=== PATIENT | female | born 1960 | race Caucasian/White ===

== ENCOUNTER 2024-06-19 07:56 | Observation (INO) | payer MEDICARE, MEDICAID, SELFPAY ==
[2024-06-19] VITALS (15 sets, daily range): BP systolic 126–151; BP diastolic 75–87; PULSE 75–105; RESP 18–24; TEMP 36.6–36.8; O2SAT 91–99; BMI 29.9
--- NOTE | 2024-06-19 08:32 | XR_ITS ---
Examination: PA lateral chest 2 views TECHNIQUE: Upright PA lateral chest 2 views Exam date and time: June 19, 2024 0849 hours INDICATIONS: Shortness of breath today. FINDINGS: Scarring versus pneumonia in the lingular segment Suspicious for mild pneumonia at the right lung base Normal heart size Reverse right shoulder arthroplasty IMPRESSION: Scarring versus pneumonia in the lingular segment, clinical correlation advised Suspicious for mild pneumonia right lung
--- NOTE | 2024-06-19 08:42 | PC.NURSE ---
Pt. here from home to room 2, pt. sitting up on the side of the bed in room 2, pt. states she has been SOB X 3 days, pt. states she was seen here last night and got a breathing treatment, pt. states she went home and continuously coughed, pt. states she knows she has pneumonia she can feel it. Pt. states she's coughing up thick green sputum. Pt. is SOB and labored breathing, pt. gets 2 or 3 words out at a time before needing a breath.
--- NOTE | 2024-06-19 09:17 | EKG_ITS ---
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
--- NOTE | 2024-06-19 09:20 | EDNOTE_ITS ---
ED SOB =RME/HPI General Chief Complaint: Shortness of Breath/Dyspnea Stated Complaint: SOB COUGH Time Seen by Provider: 06/19/24 07:59 Arrival date/time: 06/19/24 07:56 RME / HPI RME / HPI Narrative: 64 year old female with history of COPD presents to the ED for complaint of shortness of breath and cough beginning 4 days ago. Described feeling she is not getting enough air and breathing feels labored. Not improved with use of her inhalers at home. Reportedly was evaluated here last night for similar shortness of breath and received a breathing treatment. States she was discharged home and during the course of the night symptoms did not improve, prompting ED visit. Denies fevers, chills, chest pain, abdominal pain, n/v/d, urinary symptoms, or leg swelling. Related Data Previous Rx's ?Medication ?Instructions ?Recorded prednisone 20 mg tablet See Taper PO BID 3 days #6 tabs 06/18/24 Allergies Allergy/AdvReac Type Severity Reaction Status Date / Time No Known Allergies Allergy Verified 06/19/24 07:58 Review of Systems Review of Systems Narrative Review of Systems: GEN: No fever, no chills, no weight loss EYES: No discharge, no visual changes, no pain HEENT: No ear pain, no congestion, no sore throat PULM: +shortness of breath, +cough CV: No chest pain, no palpitations GI: No nausea, no vomiting, no diarrhea, no pain, no constipation : No frequency, no urgency and no dysuria MUSC/SKEL No joint pain, no back pain SKIN: No rash PSYCH: No hallucinations, no depression HEME/LYMPH: No easy bleeding or bruising tendencies NEURO: No weakness, no headache Past Medical History Social History SMOKING STATUS: Current every day smoker ED Exam Narrative Physical exam: GENERAL APPEARANCE: Well hydrated, well nourished, in no acute distress. VITALS: All vitals were reviewed and the pulse ox is 97% on 4L Oxy Mask. HEENT: Normocephalic, atramatic, EOMI, EACs are patent. There is no bulge or retraction. Throat without erythema or exudate. Moist oromucosa. No jaundice NECK: Supple, no JVD or bruits. CARDIOVASCULAR: Heart regular without S3-S4 or murmur. No rubs or gallops. LUNGS/CHEST: Rhonchi in the bases, mild wheezing. No rales. ABDOMEN: Soft, nontender, with normal bowel sounds. No pulsatile masses. No rebound, rigidity, or guarding. No incarcerated hernia. Normal inspection and palpation. EXTREMITIES: Normal inspection and palpation. No edema, clubbing, or cyanosis. Intact CSM SKIN: Warm and dry without rashes. Normal inspection. MUSCULOSKELETAL: Normal inspection. No gross deformity, full ROM all extremities NEURO: Alert and oriented x3. Cranial nerves II through XII grossly intact. There are no other motor or sensory deficits noted. PSYCHIATRIC: Normal mood and affect. No psychosis Course Course Course Narrative: chest xray ordered to help determine etiology of shortness of breath. Quality Measures none Orders Category Date Time Status Bedside COVID-19 Antigen Test NOW Care 06/19/24 08:32 Active Bedside Influenza A&B Antigen Test NOW Care 06/19/24 08:32 Completed EKG (ED ONLY) *Do not use* NOW Care 06/19/24 09:17 Completed Saline [Insert IV] NOW Care 06/19/24 09:17 Active EKG (ED Only) Stat Exams 06/19/24 09:17 Draft XR chest 2V Stat Exams 06/19/24 08:32 Completed BNP [B-Type Natriuretic Peptide] Stat Lab 06/19/24 09:25 Completed Blood Culture (Lab) Stat Lab 06/19/24 09:45 Received CBC Stat Lab 06/19/24 09:25 Completed CMP [Comprehensive Metabolic Panel] Stat Lab 06/19/24 09:25 Completed Troponin I Stat Lab 06/19/24 09:25 Completed ALBUTEROL RT 0.5ml [Proventil Rt 0.5ml] Med 06/19/24 09:17 Discontinued 5 mg HHN X1 ONE ALBUTEROL RT 0.5ml [Proventil Rt 0.5ml] Med 06/19/24 12:28 Discontinued 5 mg HHN X1 ONE Acetaminophen Tab [Tylenol Tab] Med 06/19/24 12:27 Discontinued 650 mg PO X1 ONE MethylPREDNISolone.* [SoluMEDROL Inj] Med 06/19/24 09:17 Discontinued 125 mg IVP X1 ONE Sodium Chloride Rt Angélica 0.9% [NS Rt Angélica 0.9%] Med 06/19/24 09:17 Active 3 ml INH PRN PRN Sodium Chloride Rt Angélica 0.9% [NS Rt Angélica 0.9%] Med 06/19/24 12:28 Active 3 ml INH PRN PRN cefTRIAXone/D5w 1gm IV premix [Rocephin/D5w 1gm IV Med 06/19/24 09:26 Discontinued premix] 50 ml IV X1 Vital Signs Vital signs: Vital Signs Temperature 98.2 F 06/19/24 08:14 Pulse Rate 96 06/19/24 08:14 Respiratory Rate 22 H 06/19/24 08:14 Blood Pressure 126/85 H 06/19/24 08:14 Pulse Oximetry (%) 91 L 06/19/24 08:14 Oxygen Delivery Method Room Air 06/19/24 08:14 Shortness of Breath / Dyspnea MDM Narrative MDM Narrative:: IBhavani, am scribing for and in the presence of Dr. Kim. CBC unremarkable. CMP negative. BNP negative. Troponin negative. COVID-19 negative. Influenza negative. Troponin is negative. 2 view chest x-ray reviewed and interpreted by me: Evidence of right lower lobe infiltrate. Heart is normal. Mediastinum normal. Normal bones. No CHF. No pneumothorax. Twelve-lead EKG at 9:42 AM interpreted by me: Sinus rhythm. Heart rate of 75. Normal axis. No ST elevation or depression. No PVC. No STEMI. Regular rate and rhythm. According to nursing staff, after going to the restroom, the patient coming back and short of breath and O2 saturation dropped down to 88% on room air. She was put back in bed and O2 was given via the simple mask with 5 L it went up to about 95%. Alert awake oriented x 4 GCS of 15. And talkative. She is still wheezing and I am giving her another 5 mg of albuterol continuous. She also got IV antibiotics for pneumonia and IV Solu-Medrol for COPD. She does not have an oxygen or nebulizer machine at home. She only has the inhaler. 12:30 PM, I spoke to and discussed with Dr. Sanders, hospitalist on-call. He agreed to admit the patient for further evaluation and treatment. Thank you very much. Critical care time is approximately 35 minutes excluding any procedure. The high probability of sudden, clinically significant deterioration in the patient?s condition required the highest level of my preparedness to intervene urgently. The services I provided to this patient were to treat and/or prevent clinically significant deterioration. Services included the following: chart data review, reviewing nursing notes and/or old charts, documentation time, microsoft dynamics consultant collaboration regarding findings and treatment options, medication orders and management, direct patient care, vital sign assessments and ordering, interpreting and reviewing diagnostic studies and lab tests. Aggregate critical care time includes only time during which I was engaged in work directly related to the patient?s care, as described above, whether at bedside or elsewhere in the Emergency Department. It did not include time spent performing other reported procedures or the services of residents, students, nurses or physician assistants. Patient data External records reviewed:: [facility] previous records (I reviewed ED visit from last night 06/18/2024) Clinical information provided by:: patient Social determinants that could affect healthcare access:: none Patient has the following chronic illnesses:: COPD How is presenting disease/condition affected by chronic disease/condition?: exacerbated by Evaluation data The following diagnostics were reviewed and interpreted by me:: lab results and radiology exam(s) Lab and/or radiology exams considered but not ordered:: None Interpretation Summary: Ordering Physician: Akash JAMES)Misael NP Date of Service: 06/19/24 Procedure(s): XR chest 2V Accession Number(s): [id number] cc: Akash JAMES),Misael GONZALES; Angus Silva MD~ Examination: PA lateral chest 2 views TECHNIQUE: Upright PA lateral chest 2 views Exam date and time: June 19, 2024 0849 hours INDICATIONS: Shortness of breath today. FINDINGS: Scarring versus pneumonia in the lingular segment Suspicious for mild pneumonia at the right lung base Normal heart size Reverse right shoulder arthroplasty IMPRESSION: Scarring versus pneumonia in the lingular segment, clinical correlation advised Suspicious for mild pneumonia right lung Dictated By: Angus Silva MD Signed By: <Electronically signed by Angus Silva MD in OV> 06/19/24 0909 Medications / Prescriptions Medications or Prescriptions considered but not ordered:: None Medication administrations:: Medication Administration History Sodium Chloride (Sodium Chloride Rt Angélica 0.9% 3 Ml Nebu) 3 ml INH PRN PRN PRN Reason: SOLN Stop: 07/19/24 09:16 Last Admin: 06/19/24 09:46 Dose: 3 ml Documented By: Sodium Chloride (Sodium Chloride Rt Angélica 0.9% 3 Ml Nebu) 3 ml INH PRN PRN PRN Reason: SOLN Stop: 07/19/24 12:27 Discontinued Medications Acetaminophen (Acetaminophen 325 Mg Tablet) 650 mg PO X1 ONE Stop: 06/19/24 12:28 Last Admin: 06/19/24 12:33 Dose: 650 mg Documented By: ED Albuterol (Albuterol Rt 2.5 Mg/0.5 Ml Nebu) 5 mg HHN X1 ONE Stop: 06/19/24 09:18 Last Admin: 06/19/24 09:46 Dose: 5 mg Documented By: MR Albuterol (Albuterol Rt 2.5 Mg/0.5 Ml Nebu) 5 mg HHN X1 ONE Stop: 06/19/24 12:29 Ceftriaxone Sodium/Dextrose (Rocephin/D5w 1gm Iv Premix) 50 mls @ 100 mls/hr IV X1 ONE Stop: 06/19/24 09:55 Last Infusion: 06/19/24 10:50 Dose: Infused Documented By: Admin: 06/19/24 10:20 Dose: 100 mls/hr Documented By: ED Methylprednisolone Sodium Succinate (Methylprednisolone Sod Succ 62.5 Mg/Ml 2ml Vial) 125 mg IVP X1 ONE Stop: 06/19/24 09:18 Last Admin: 06/19/24 10:12 Dose: 125 mg Documented By: ED See above Consultations Consultation(s) initiated? (list below): Yes Consultation #1 (Physician, Specialty, Details): I spoke with hospitalist Dr. Sanders regarding admission. Discussed patients PMHx, HPI, ED course, exam findings, labs, and radiology results. Time: 12:30 Diagnosis Shortness of Breath Differential Diagnosis: acute exacerbation of chronic obstructive airways disease, congestive heart failure and community acquired pneumonia Most likely diagnosis given after review of the tests above:: COPD. Pneumonia. Hypoxia Admission Indicated Admission indicated?: indicated Admission Request Was there a request for admission?: Yes Admission Attestation Admission request attestation: Discussed case with [] from Hospitalist service regarding admission. Discussed patients ED course, exam findings, labs, and radiology results. The Hospitalist [agrees,declines] to accept the patient for admission. Disposition Plan Disposition Plan: Admit Discharge Plan Plan Patient Disposition: Admit Acute Care w/in Hospital Disposition Comment: Stable for admit Prescriptions/Referrals Prescriptions/Med Rec: No Action prednisone 20 mg tablet See Taper PO BID 3 Days Qty: 6 0RF Taper: Prednisone Taper 20 mg DAILY for 2 Days and 0 Hour 10 mg DAILY for 2 Days and 0 Hour 5 mg DAILY for 7 Days and 0 Hour Referrals: Harshad Frances MD [Primary Care Provider] - In 1 week Problem List Clinical Impression: Acute exacerbation of chronic obstructive airways disease, Community acquired pneumonia, Hypoxia Patient/Caregiver Discharge Instructions Print Language: Omani Stand Alone Forms: Maryan Award Info., Patient Portal Info Letter
[2024-06-19 09:32] LABS: Basophils % (Auto) 0 % (0-2.5); Eosinophils % (Auto) 0 % (0-10); Hematocrit 45.4 % (36.0-46.0); Hemoglobin 15.2 g/dL (12.0-16.0); Immature Granulocytes % (Auto) 0 % (0-0); Immature Granulocytes Auto 0.04 Thou/mm3 (0.00-0.00); Lymphocytes # (Auto) 1.1 Thou/mm3 (1.0-4.8); Lymphocytes % (Auto) 10 % (10-50); Mean Corpuscular HGB Conc 33.5 g/dl (31.0-37.0); Mean Corpuscular Hemoglobin 31.4 pg (25.0-35.0); Mean Corpuscular Volume 94 fL (80-100); Monocytes # (Auto) 0.7 Thou/mm3 (0.0-0.8); Monocytes % (Auto) 6 % (0-12); Neutrophils # (Auto) 9.8 Thou/mm3 (1.8-7.7); Neutrophils % (Auto) 84 % (37-80); Nucleated Red Blood Cell % 0 /100 WBC (0); Platelet Count 170 Thou/mm3 (140-440); RDW Standard Deviation 48.6 fL (36.4-46.3); Red Blood Count 4.84 Miln/mm3 (4.00-5.20); White Blood Count 11.7 Thou/mm3 (3.6-11.0)
[2024-06-19] MEDS: SODIUM CHLORIDE RT SOL 0.9% 3 ML NEBU INH ×2 (09:46→12:42)
[2024-06-19] MEDS: ALBUTEROL RT 2.5 MG/0.5 ML NEBU 5 MG HHN ×2 (09:46→12:41)
[2024-06-19 09:48] LABS: B-Type Natriuretic Peptide 60 pg/mL (0-100)
[2024-06-19 09:51] LABS: Alanine Aminotransferase 34 U/L (10-49); Albumin, Serum 4.9 gm/dL (3.4-4.8); Albumin/Globulin Ratio 1.6 (1.2-2.2); Alkaline Phosphatase 92 U/L (46-116); Anion Gap 9 (7-16); Aspartate Amino Transferase 28 U/L (0-34); BUN/Creatinine Ratio 14 Ratio (12-20); Bilirubin,Total 0.7 mg/dL (0.3-1.2); Blood Urea Nitrogen 14 mg/dL (9-23); Calcium 10.8 mg/dL (8.3-10.6); Calcium (Corrected) 10.8 mg/dL (8.5-10.1); Chloride 103 mMol/L (98-107); Estimated Creatinine Clearance 60.8 mL/min (>60); Glucose 111 mg/dL (74-106); Osmolality,Calculated 279 (275-295); Potassium 4.7 mMol/L (3.4-5.1); Sodium 139 mMol/L (136-145); Total Protein 7.9 gm/dL (5.7-8.2); Troponin I < 0.020 ng/mL (0.0-0.045); eGFR > 60 See Note
[2024-06-19] MEDS: MethylPREDNISolone SOD SUCC 62.5 MG/ML 2ML VIAL 125 MG IVP (10:12)
[2024-06-19] MEDS: cefTRIAXone/D5w 1gm IV premix 50 ML IV (10:20)
[2024-06-19] MEDS: ACETAMINOPHEN 325 MG TABLET 650 MG PO (12:33)
--- NOTE | 2024-06-19 13:54 | ESHP_ITS ---
<Statement entered by Luz Marina Michael MD - 06/19/24 19:53> Patient was seen and examined by me personally. I agree with most of the assessment and plan as discussed with the internal control manager physician, and my attending, Dr. Sanders. 64y/o F with HTN, COPD (former 20 pack year history, quit 10 years ago although smoke marijuana daily), HLD who returned to ED with SOB. Patient was seen in ED on 06/18 and requested steroids & breathing treatment, but refused CXR, labs and further work up. When symptoms did not improve, she returned to ED. CXR concerning for COPD and PNA, with fairly unremarkable labs (leukocytosis could be reactive from steroids on 06/18). Patient will be admitted for acute COPD exacerbation, with suspicion for CAP. She was started on prednisone x 5days, azithromycin, breathing treatments, magnesium 2g x1 and CPT/IS. Luz Marina Michael MD, PGY-3 Documentation for date of: 06/19/24 HPI History of Present Illness Chief complaint: Shortness of breath History of present illness: 64-year-old female with past medical history of hypertension, COPD, fibromyalgia, hyperlipidemia, GERD, Restless leg syndrome presented to the hospital with the chief complaints of shortness of breath. Patient was apparently normal 3 days ago and developed sudden onset of shortness of breath, which is gradually progressing and not even reviewed with her regular inhalers. Associated with new onset cough along with yellowish-green sputum. Also reported that she is not even able to sleep or lie down due to severe shortness of breath. Denies fever, PND, abdominal distention, pedal edema, palpitations, syncopal episodes. Per chart review, patient came to the ED the day before admission for shortness of breath and received nebulizers and steroids, but as patient denied lab work and imaging later patient was discharged to home. Today patient came back with similar complaints with more intensity. ED Course: -Initial vitals were 126/85 mmHg, pulse rate 96/min, respiratory rate 22/min, temperature 98.2 ?F, SpO2 91% with room air. -Labs significant for WBC 11.7, Hb 15.2, platelets 170, sodium 139, potassium 4.7, BUN 14, creatinine 1. -EKG done in the ED showed normal sinus rhythm. Chest x-ray showed COPD changes with suspicion of pneumonia and right lung. -In the ED, patient was given nebulizations, steroid and a dose of ceftriaxone -Patient was admitted for acute exacerbation of COPD Past medical history: Hypertension, COPD, fibromyalgia, hyperlipidemia, GERD Past surgical history: Right shoulder surgery, bilateral hip replacement, cholecystectomy. Social history: [id number] smoking history and stopped 10 years ago, alcoholic for 20 years and stopped 10 years ago, marijuana 1-2 joints per day, denies other illicit drug abuse. Family history: Brain cancer brain cancer in father Allergies: NKDA Review of Systems Review of Systems Narrative Review of Systems: Constitutional: No Weight Change, No Fever, No Chills, No Night Sweats, No Fatigue, No Malaise ENT/Mouth: No Hearing Changes, No Ear Pain, No Nasal Congestion, No Sinus Pain, No Hoarseness, No sore throat, No Rhinorrhea, No Swallowing Difficulty Eyes: No Eye Pain, No Swelling, No Redness, No Foreign Body, No Discharge, No Vision Changes Cardiovascular: No Chest Pain, No PND, No Dyspnea on Exertion, No Orthopnea, No Edema, No Palpitations Respiratory: Cough, Sputum, Wheezing, Dyspnea Gastrointestinal: No Nausea, No Vomiting, No Diarrhea, No Constipation, No Pain, No Heartburn, No Anorexia, No Dysphagia, No Hematochezia, No Melena, No Flatulence, No Jaundice Genitourinary: No Dysuria, No Urinary Frequency, No Hematuria, No Urinary Incontinence, No Urgency, No Flank Pain, No Urinary Flow Changes, No Hesitancy Musculoskeletal: No Arthralgias, No Myalgias, No Joint Swelling, No Joint Stiffness, No Back Pain, No Neck Pain, No Injury History Skin: No Skin Lesions, No Pruritis Neuro: No Weakness, No Numbness, No Paresthesias, No Loss of Consciousness, No Syncope, No Dizziness, No Headache, No Coordination Changes, No Recent Falls Exam Vital Signs Temp Pulse Resp BP Pulse Ox O2 Del Method O2 Flow Rate 98.2 F 87 20 130/86 H 98 Oxy Mask 5 06/19/24 12:00 06/19/24 12:43 06/19/24 12:43 06/19/24 12:00 06/19/24 12:43 06/19/24 12:00 06/19/24 12:43 Narrative Exam General: Awake. Overweight. HEENT: Normocephalic, atraumatic, mucous membranes moist. Heart: Regular rate and rhythm, no murmurs. Lungs: Overall decreased breath sounds are heard. Bilateral diffuse wheeze noticed Abdomen: Soft, nondistended, nontender, positive bowel sounds. ?No guarding or rebound tenderness. Neurologic: Alert and oriented x3, no gross neurological deficit, and patient able to move all 4 extremities. Extremities: No edema. Skin: No rash or ecchymoses. Results: Labs 06/20/24 03:48 06/20/24 03:48 Labs: Short CBC 06/19/24 Range/Units 09:25 WBC 11.7 H (3.6-11.0) Thou/mm3 Hgb 15.2 (12.0-16.0) g/dL Hct 45.4 (36.0-46.0) % Plt Count 170 (140-440) Thou/mm3 BMP 06/19/24 09:25 Sodium 139 Potassium 4.7 Chloride 103 Carbon Dioxide 27.0 BUN 14 Creatinine 1.0 Glucose 111 H Calcium 10.8 H Cardiac Enzymes 06/19/24 Range/Units 09:25 Troponin I < 0.020 (0.0-0.045) ng/mL Liver Function 06/19/24 Range/Units 09:25 Total Bilirubin 0.7 (0.3-1.2) mg/dL AST 28 (0-34) U/L ALT 34 (10-49) U/L Alkaline Phosphatase 92 (46-116) U/L Albumin 4.9 H (3.4-4.8) gm/dL Quality Measures Quality Measures none Medications Home Medications and Allergies Home Medications ?Medication ?Instructions ?Recorded ?Confirmed ?Type albuterol sulfate 90 mcg/actuation 2 inh inhalation Q4H PRN short of 06/19/24 06/19/24 History aerosol inhaler breath amlodipine 10 mg tablet 10 mg PO QDAY 06/19/24 06/19/24 History atorvastatin 10 mg tablet 10 mg PO HS 06/19/24 06/19/24 History carvedilol 3.125 mg tablet 3.125 mg PO QDAY 06/19/24 06/19/24 History duloxetine 20 mg capsule,delayed 20 mg PO BID 06/19/24 06/19/24 History release fluticasone furoate 200 2 inh inhalation BID 06/19/24 06/19/24 History mcg/actuation blister powder for inhalation (Arnuity Ellipta) gabapentin 400 mg capsule 400 mg PO HS 06/19/24 06/19/24 History omeprazole 10 mg capsule,delayed 10 mg PO QDAY 06/19/24 06/19/24 History release ropinirole 0.25 mg tablet 0.25 mg PO HS 06/19/24 06/19/24 History Allergies Allergy/AdvReac Type Severity Reaction Status Date / Time No Known Allergies Allergy Verified 06/19/24 07:58 Visit Medications Acetaminophen (Acetaminophen 325 Mg Tablet) 650 mg PO Q6H PRN PRN Reason: Fever >101.5 Stop: 07/19/24 13:20 Acetylcysteine (Acetylcysteine Rt Angélica 10% 4 Ml Nebu) 3 ml INH Q4HRRT [facility] Stop: 07/19/24 14:59 Albuterol/Ipratropium (Albuterol/Ipratropium (Duoneb) Rt Angélica 3 Ml Nebu) 3 ml INH Q4HRRT [facility] Stop: 07/19/24 14:59 Azithromycin (Azithromycin 250 Mg Tablet) 500 mg PO QDAY [facility] Stop: 06/26/24 13:59 Ondansetron HCl (Ondansetron Inj 2 Mg/Ml Inj 2 Ml) 4 mg IV Q6H PRN; Protocol PRN Reason: NAUSEA OR VOMITING Stop: 07/19/24 13:20 Prednisone (Prednisone 20 Mg Tablet) 40 mg PO QDAY [facility] Stop: 07/20/24 08:59 Sodium Chloride (Sodium Chloride Rt Angélica 0.9% 3 Ml Nebu) 3 ml INH PRN PRN PRN Reason: SOLN Stop: 07/19/24 09:16 Last Admin: 06/19/24 12:42 Dose: 3 ml Sodium Chloride (Sodium Chloride Rt Angélica 0.9% 3 Ml Nebu) 3 ml INH PRN PRN PRN Reason: SOLN Stop: 07/19/24 12:27 Discontinued Medications Acetaminophen (Acetaminophen 325 Mg Tablet) 650 mg PO X1 ONE Stop: 06/19/24 12:28 Last Admin: 06/19/24 12:33 Dose: 650 mg Albuterol (Albuterol Rt 2.5 Mg/0.5 Ml Nebu) 5 mg HHN X1 ONE Stop: 06/19/24 09:18 Last Admin: 06/19/24 09:46 Dose: 5 mg Albuterol (Albuterol Rt 2.5 Mg/0.5 Ml Nebu) 5 mg HHN X1 ONE Stop: 06/19/24 12:29 Last Admin: 06/19/24 12:41 Dose: 5 mg Budesonide (Budesonide Rt 0.5 Mg/2 Ml Nebu) 0.5 mg INH BIDRT [facility] Stop: 07/19/24 18:59 Ceftriaxone Sodium/Dextrose (Rocephin/D5w 1gm Iv Premix) 50 mls @ 100 mls/hr IV X1 ONE Stop: 06/19/24 09:55 Last Infusion: 06/19/24 10:50 Dose: Infused Methylprednisolone Sodium Succinate (Methylprednisolone Sod Succ 62.5 Mg/Ml 2ml Vial) 125 mg IVP X1 ONE Stop: 06/19/24 09:18 Last Admin: 06/19/24 10:12 Dose: 125 mg Assessment & Plan Plan 64-year-old female with past medical history of hypertension, COPD, fibromyalgia, hyperlipidemia, GERD, restless leg syndrome presented to the hospital with the chief complaints of shortness of breath and admitted for acute exacerbation of COPD. # Acute exacerbation of COPD # Known COPD # Chronic smoker 20 pack years, stopped 10 years ago -Presented to the ED with shortness of breath since 3 days -Associated with cough and sputum which is yellowish-green in color -Denies fever, palpitations, pedal edema, PND -Patient is using inhalers at home, despite increasing the frequency of inhaler usage the symptoms are worsening -In the ED, patient received steroid, nebulizations, a dose of ceftriaxone -Labs significant for mild leukocytosis WBC 11.7 -Chest x-ray showed changes of COPD with suspicion of pneumonia in the right lung. -Tested negative for COVID, influenza Plan -Magnesium 2 g is given over 20 minutes -Albuterol nebulizations every fourth hourly and as needed -Mucomyst nebulization as patient is complaining of productive cough -Chest physiotherapy and incentive spirometry is ordered -Azithromycin and prednisone 40 Mg is started [06/19- # History of hypertension -Blood pressure at the time of admission is 126/85 mmHg -Patient is using amlodipine 10 Mg p.o. daily and carvedilol 3.125 Mg twice daily Plan -Resumed amlodipine and will monitor blood pressures # History of hyperlipidemia -Lipid profile is ordered -Patient is using atorvastatin 10 Mg at home -Held for now and will resume while discharging her home # History of fibromyalgia -Patient is using gabapentin 400 Mg twice daily -Med rec is pending # History of restless leg syndrome -Patient is using ropinirole at home -Med rec is pending and will start medication once the medications are reconciled Hospital Maintenance: Dispo: medsurg DVT ppx: SCD GI ppx: protonix Diet: low sodium IV lines:peripheral Code status: Full Patient plan of care was discussed with the attending physician, Dr. Sanders and senior resident Dr. Fernanda Loyd, PGY1 Attending Provider Attestation/Addendum I reviewed labs, imaging, EKG, home medications and prior available records. Face to face evaluation was performed by me. I have personally examined the patient and discussed assessment and plan with the IM team. I reviewed the resident note and agree with the plan with exceptions as below. COPD exacerbation Chronic tobacco use Right lower lobe pneumonia Primary hypertension Start DuoNebs Start systemic corticosteroids Oxygen as needed Started IV Rocephin Counseled the patient regarding the importance of stopping tobacco use
[2024-06-19] MEDS: AZITHROMYCIN 250 MG TABLET 500 MG PO (15:13)
[2024-06-19] MEDS: ALBUTEROL/IPRATROPIUM (Duoneb) RT SOL 3 ML NEBU INH ×3 (15:41→22:26)
[2024-06-19] MEDS: ACETYLCYSTEINE RT SOL 10% 4 ML NEBU 3 ML INH ×3 (15:41→22:26)
[2024-06-19] MEDS: Magnesium Sulfate 2 GM Ivpb 2 GM/50 ML BAG IV (17:42)
[2024-06-19] MEDS: amLODIPine BESYLATE 5 MG TABLET 10 MG PO (17:59)
[2024-06-19] MEDS: guaiFENesin/DM TABLET 1 EACH PO (21:03)
[2024-06-20] VITALS (8 sets, daily range): BP systolic 114–141; BP diastolic 64–79; PULSE 80–89; RESP 18–96; TEMP 36.3–36.8; O2SAT 94–100
[2024-06-20] MEDS: ALBUTEROL/IPRATROPIUM (Duoneb) RT SOL 3 ML NEBU INH ×4 (02:45→14:02)
[2024-06-20] MEDS: ACETYLCYSTEINE RT SOL 10% 4 ML NEBU 3 ML INH ×2 (02:45→06:34)
[2024-06-20 05:25] LABS: Basophils % (Auto) 0 % (0-2.5); Eosinophils % (Auto) 0 % (0-10); Hematocrit 42.2 % (36.0-46.0); Hemoglobin 14.1 g/dL (12.0-16.0); Immature Granulocytes % (Auto) 1 % (0-0); Immature Granulocytes Auto 0.08 Thou/mm3 (0.00-0.00); Lymphocytes # (Auto) 1.3 Thou/mm3 (1.0-4.8); Lymphocytes % (Auto) 10 % (10-50); Mean Corpuscular HGB Conc 33.4 g/dl (31.0-37.0); Mean Corpuscular Hemoglobin 31.3 pg (25.0-35.0); Mean Corpuscular Volume 94 fL (80-100); Monocytes # (Auto) 0.7 Thou/mm3 (0.0-0.8); Monocytes % (Auto) 6 % (0-12); Neutrophils # (Auto) 10.4 Thou/mm3 (1.8-7.7); Neutrophils % (Auto) 84 % (37-80); Nucleated Red Blood Cell % 0 /100 WBC (0); Platelet Count 177 Thou/mm3 (140-440); RDW Standard Deviation 48.2 fL (36.4-46.3); Red Blood Count 4.51 Miln/mm3 (4.00-5.20); White Blood Count 12.4 Thou/mm3 (3.6-11.0)
[2024-06-20 06:02] LABS: Glucose Estimated Average 114 mg/dL (80-131); Hemoglobin A1C 5.6 % Hgb (4.8-6.0)
[2024-06-20 06:06] LABS: Anion Gap 9 (7-16); BUN/Creatinine Ratio 19 Ratio (12-20); Blood Urea Nitrogen 17 mg/dL (9-23); Carbon Dioxide 26.2 mMol/L (20.0-31.0); Cardiac Risk Estimate 2.9 RATIO (3.7-5.6); Chloride 103 mMol/L (98-107); Cholesterol 156 mg/dL (132-200); Creatinine (Component) 0.9 mg/dL (0.6-1.3); Estimated Creatinine Clearance 67.5 mL/min (>60); Glucose 153 mg/dL (74-106); HDL Cholesterol 53 mg/dL (40-60); LDL Cholesterol,Calculated 92 mg/dL (0-130); Osmolality,Calculated 280 (275-295); Potassium 4.7 mMol/L (3.4-5.1); Sodium 138 mMol/L (136-145); Thyroid Stimulating Hormone 0.44 uIU/mL (0.55-4.78); Triglycerides 57 mg/dL (30-150); eGFR > 60 See Note
[2024-06-20] MEDS: ACETAMINOPHEN 325 MG TABLET 650 MG PO (06:17)
[2024-06-20] MEDS: predniSONE 20 MG TABLET 40 MG PO (08:51)
[2024-06-20] MEDS: DOXYCYCLINE 100 MG TABLET PO (08:52)
[2024-06-20] MEDS: guaiFENesin/DM TABLET 1 EACH PO (08:52)
[2024-06-20] MEDS: amLODIPine BESYLATE 5 MG TABLET 10 MG PO (08:53)
[2024-06-20] MEDS: PANTOPRAZOLE INJ 40 MG VIAL IVP (08:56)
--- NOTE | 2024-06-20 09:40 | PC.NURSE ---
IV rocephin will be given late, attempting to locate IV pump to administer, per pharmacy dial-a-flow tubing is not appropriate for administration of medications other than IV fluids
[2024-06-20 10:08] LABS: Free T4 (Free Thyroxine) 1.18 ng/dL (0.89-1.76)
--- NOTE | 2024-06-20 11:06 | PC.SS ---
Patient is alert/oriented. She states she resides with her son. Admitted for COPD. Patient is not on 02 at home. She states she does not use any DME at home. Patient states she's independent with ADL's. Family transports her to all appointments. Patient pharmacy: [facility]. No resp. devices at home. PCP: Dr. Frances/NAOMIE a month ago. Transportation: family. Alt medical decision maker: Moustapha gonzalez,
[2024-06-20] MEDS: AMOXICILLIN 250 MG CAPSULE 1000 MG PO (13:03)
[2024-06-20 14:03] LABS: Cocci Serology, IgM Negative (Negative)
--- NOTE | 2024-06-20 15:25 | ESDS_ITS ---
<Statement entered by Luz Marina Michael MD - 06/21/24 08:38> Patient was seen and examined by me personally. I agree with the discharge plan as discussed with the [facility] internship physician, and my attending, Dr. Sanders. Luz Marina Michael MD, PGY-3 Planned Discharge Date 06/20/24 DS: Providers Provider Date of admission: 06/19/24 13:21 Primary care physician: Harshad Frances MD Admitting Provider: Viktor Sanders MD Attending Provider on Admission: Viktor Sanders MD Attending Provider on DC: Paolo Loyd MD Discharging Provider: Paolo Loyd MD DS: Diagnosis Problem List Completed Was Problem List Reviewed/Reconciled?: Yes Hospital Course Hospital Course Hospital course: 64-year-old female with past medical history of hypertension, COPD, fibromyalgia, hyperlipidemia, GERD, Restless leg syndrome presented to the hospital with the chief complaints of shortness of breath and admitted in the hospital for acute exacerbation of COPD. Chest x-ray showed Scarring versus pneumonia in the lingular segment. Vitals are stable at the time of admission except for SpO2 91% with 5 L oxygen through nasal cannula. Tested negative for influenza, COVID, cocci. Labs showed mild leukocytosis which could be secondary to steroids, HbA1c is 5.6, lipid profile is within normal limits. TSH is 0.44, free T4 is 1.18. Patient was treated with nebulization, chest physiotherapy, antibiotics, steroids during the hospital stay and patient was weaned off oxygen completely and able to maintain saturations at 95 to 96% with room air. Patient was discharged to home with the following medications and recommenda tions. - Take Azithromycin and Amoxicillin as prescribed for 5 more days to complete antibiotic course - Follow up with primary care provider in 1 week from discharge - Follow up Cocci results outpatient with your primary care provider. Take anti- fungal Fluconazole 400mg daily if positive results. - Continue home inhalers. Take spiriva twice a day if symptoms dont resolve with regular inhalers - Return to the ED if symptoms worsen # Acute exacerbation of COPD # Chronic smoker 20 pack years and alcoholic, stopped 10 years ago # History of hypertension # History of hyperlipidemia # History of fibromyalgia # History of restless leg syndrome Patient plan of care was discussed with the attending physician, Dr. Sanders and senior resident Dr. Fernanda Loyd, PGY1 Time Spent with Patient Time attestation: Total time spent providing and/or coordinating discharge services: Time spent: Greater than 30 minutes Exam Vital Signs Temp Pulse Resp BP Pulse Ox O2 Del Method O2 Flow Rate 97.3 F 84 20 120/77 97 Nasal Cannula 3 06/20/24 12:00 06/20/24 13:57 06/20/24 13:57 06/20/24 12:00 06/20/24 13:57 06/20/24 12:00 06/19/24 22:26 Narrative Exam General: Awake. HEENT: Normocephalic, atraumatic, mucous membranes moist. Heart: Regular rate and rhythm, no murmurs. Lungs: Bilateral diffuse wheeze heard but decreased from the time of admission. Abdomen: Soft, nondistended, nontender, positive bowel sounds. ?No guarding or rebound tenderness. Neurologic: Alert and oriented x3, no gross neurological deficit, and patient able to move all 4 extremities. Extremities: No edema. Skin: No rash or ecchymoses. Discharge Plan Plan Patient Disposition: HOME (Self Care) Disposition Comment: Stable for admit Patient condition on transfer: Stable Care Plan Goals: - Take Azithromycin and Amoxicillin as prescribed for 5 more days to complete antibiotic course - Follow up with primary care provider in 1 week from discharge - Follow up Cocci results outpatient with your primary care provider. Take anti- fungal Fluconazole 400mg daily if positive results. - Continue home inhalers. Take spiriva twice a day if symptoms dont resolve with regular inhalers - Return to the ED if symptoms worsen Prescriptions/Referrals Prescriptions/Med Rec: New amoxicillin 500 mg tablet 1,000 mg PO TID 5 Days Qty: 30 0RF azithromycin 500 mg tablet 500 mg PO QDAY 5 Days Qty: 5 0RF prednisone 5 mg tablet See Taper PO QDAY 10 Days Qty: 15 0RF Taper: Prednisone Taper 10 mg DAILY for 5 Days and 24 Hours 5 mg DAILY for 5 Days and 24 Hours Rx Instructions: 10mg x5 days 5mg x5 days Arnuity Ellipta 200 mcg/actuation blister with device 1 inh inhalation QDAY 30 Days Qty: 30 0RF Continued atorvastatin 10 mg tablet 10 mg PO HS Patient Comments: take 1 tablet by mouth once daily gabapentin 400 mg capsule 400 mg PO HS carvedilol 3.125 mg tablet 3.125 mg PO QDAY Patient Comments: take 1 tablet by mouth twice a day with food omeprazole 10 mg capsule,delayed release(DR/EC) 10 mg PO QDAY Patient Comments: take 1 capsule by mouth once daily ropinirole 0.25 mg tablet 0.25 mg PO HS Patient Comments: take 1/2 tablet by mouth once daily 1 to 3 hours BEFORE BED amlodipine 10 mg tablet 10 mg PO QDAY Patient Comments: take 1 tablet by mouth once daily albuterol sulfate 90 mcg/actuation HFA aerosol inhaler 2 inh inhalation Q4H PRN (Reason: short of breath) Patient Comments: inhale 1 puff by mouth every 4 hours if needed duloxetine 20 mg capsule,delayed release(DR/EC) 20 mg PO BID Patient Comments: take 1 capsule by mouth twice a day Arnuity Ellipta 200 mcg/actuation blister with device 2 inh INHALATION BID Patient Comments: inhale 1 puff by mouth once daily Discontinued prednisone 20 mg tablet See Taper PO BID 3 Days Qty: 6 0RF Taper: Prednisone Taper 20 mg DAILY for 2 Days and 0 Hour 10 mg DAILY for 2 Days and 0 Hour 5 mg DAILY for 7 Days and 0 Hour Referrals: Harshad Frances MD [Primary Care Provider] - Patient/Caregiver Discharge Instructions Meds to Beds: Yes Discharge Activity: resume usual activities Other Discharge Diet Instructions: - Take Azithromycin and Amoxicillin as prescribed for 5 more days to complete antibiotic course - Follow up with primary care provider in 1 week from discharge - Follow up Cocci results outpatient with your primary care provider. Take anti- fungal Fluconazole 400mg daily if positive results. - Continue home inhalers. Can take Ellipta inhaler upto twice a day if symptoms dont resolve with regular inhalers - Return to the ED if symptoms worsen Education Materials: COPD: Chronic Coughing, COPD: Coping with Mucus, Asthma and COPD Print Language: Brazilian Stand Alone Forms: [facility] Award Info., Patient Portal Info Letter, Work/Release Restrictions Discharge Order Discharge Orders: Discharge (Routine); Ordered 06/20/24 Ordered By: Lawrence Huang Quality Discharge Quality Measures VTE prophylaxis Attestestation Attestation I reviewed labs, imaging, EKG, home medications and prior available records. Face to face evaluation was performed by me. I have personally examined the patient and discussed assessment and plan with the IM team. I reviewed the resident note and agree with the plan with exceptions as below. COPD exacerbation Chronic tobacco use Right lower lobe pneumonia Primary hypertension Will prescribe nebulizing machine Steroid taper Arnuity Ellipta in addition to home steroid inhaler and rescue inhaler as needed Amoxicillin and azithromycin for 5 days Avoid tobacco use Time spent is 40 minutes. More than 50% of the time was spent on patient education and coordination of care.
[2024-06-21 13:50] LABS: Cocci Serology, IgG Negative (Negative)
== END 2024-06-20 14:53 | disposition home or self-care (01) ==
LOC: SERX 12:35 → S3NX 06-20 06:51 → SERHOLD 06-20 11:46
PROVIDERS: Student in an Organized Health Care Education/Training Program; Admitting Provider Student in an Organized Health Care Education/Training Program; Emergency Provider Emergency Medicine; PCP Family Medicine; Visit Provider Student in an Organized Health Care Education/Training Program
DX: J44.1 Chronic obstructive pulmonary disease with (acute) exacerbation (principal); M79.7 Fibromyalgia; K21.9 Gastro-esophageal reflux disease without esophagitis; J18.9 Pneumonia, unspecified organism; J44.0 Chronic obstructive pulmonary disease with (acute) lower respiratory infection; I10 Essential (primary) hypertension; G25.81 Restless legs syndrome; F17.200 Nicotine dependence, unspecified, uncomplicated; E78.5 Hyperlipidemia, unspecified; Z11.52 Encounter for screening for COVID-19
CPT/HCPCS: 36415; 71046; 80048; 80053; 80061; 83036; 83735; 83880; 84439; 84443; 84484; 85025; 86331; 86635; 87040; 87400; 87811; 93005; 94640; 96365; 96366; 96367; 96375; 99291; A9270; G0378; J0696; J2470; J2919; J3475; J7512